=== PATIENT | female | born 1990 | race Caucasian/White ===

== ENCOUNTER 2019-04-07 13:50 | Emergency (ER) | payer BC, OTHER ==
[~2019-04-07] VITALS: Ht 170.2 cm; Wt 73.0 kg
[2019-04-07 13:54] VITALS: BP 143/76; PULSE 88; RESP 18; Ht 170.2 cm; Wt 73.0 kg
[2019-04-07] MEDS ORDERED: NAPR-985 PO (15:10)
[2019-04-07] MEDS ORDERED: HYDR-4011 PO (15:10)
[2019-04-07] MEDS ORDERED: MED4DP PO (15:10)
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
== END 2019-04-07 16:02 | disposition home or self-care (01) ==
LOC: FTE 13:50
DX: M54.9 Dorsalgia, unspecified (principal); M25.519 Pain in unspecified shoulder
CPT/HCPCS: 99283